=== PATIENT | male | born 1960 | race American Indian/Alaskan Native ===

== ENCOUNTER 2019-03-18 15:54 | Emergency (ER) | payer SELFPAY ==
[2019-03-18 16:01] VITALS: BP 169/102
--- NOTE | 2019-03-18 17:05 | Event Note ---
ED Screening Note Date of service: 03/18/19 Time: 17:03 ED Screening Note: This is a 58 y.o. M. that presents to the ER with elevated blood pressure and medication refills. Patient states recently moved here from [place] with no PCP. This initial assessment/diagnostic orders/clinical plan/treatment(s) is/are subject to change based on patients health status, clinical progression and re- assessment by fellow clinical providers in the ED. Further treatment and workup at subsequent clinical providers discretion. Patient/guardian urged not to elope from the ED as their condition may be serious if not clinically assessed and managed. Initial orders include:
--- NOTE | 2019-03-18 20:45 | Emergency Department Report ---
ED General Adult HPI - General Chief complaint: Medical Clearance Stated complaint: MEDICATION REFILL Time Seen by Provider: 03/18/19 17:00 Source: patient Mode of arrival: Ambulatory Limitations: No Limitations - History of Present Illness Initial comments: 58-year-old -[place] male has relocated to the area and reports that he needs a medication refill. He denies any pain or any symptoms. Reports no fever, chills, sweats. No chest pain, no palpitations, no shortness of breath. Out of his medication for a couple days and seeks a refill on -: Gradual Radiation: non-radiation Quality: dull Consistency: constant Improves with: none Worsens with: none - Related Data Previous Rx's Medication Instructions Recorded Last Taken Type Lisinopril [Zestril TAB] 40 mg PO QDAY #30 tablet 03/18/19 Unknown Rx amLODIPine [Norvasc] 10 mg PO DAILY #30 tab 03/18/19 Unknown Rx Allergies Allergy/AdvReac Type Severity Reaction Status Date / Time No Known Allergies Allergy Unverified 03/18/19 15:56 ED Review of Systems ROS: Stated complaint: MEDICATION REFILL Other details as noted in HPI Comment: All other systems reviewed and negative ED Past Medical Hx - Past Medical History Previous Medical History?: Yes Hx Hypertension: Yes - Surgical History Past Surgical History?: Yes Additional Surgical History: Left inquinal hernia suurgery - Social History Smoking Status: Never Smoker Substance Use Type: Prescribed - Medications Home Medications: Home Medications Medication Instructions Recorded Confirmed Last Taken Type Lisinopril [Zestril TAB] 40 mg PO QDAY #30 tablet 03/18/19 Unknown Rx amLODIPine [Norvasc] 10 mg PO DAILY #30 tab 03/18/19 Unknown Rx ED Physical Exam - General Limitations: No Limitations General appearance: alert, in no apparent distress - Head Head exam: Present: atraumatic, normocephalic - Eye Eye exam: Present: normal appearance - ENT ENT exam: Present: mucous membranes moist - Neck Neck exam: Present: normal inspection - Respiratory Respiratory exam: Present: normal lung sounds bilaterally. Absent: respiratory distress - Cardiovascular Cardiovascular Exam: Present: regular rate, normal rhythm. Absent: systolic murmur, diastolic murmur, rubs, gallop - GI/Abdominal GI/Abdominal exam: Present: soft, normal bowel sounds - Rectal Rectal exam: Present: deferred - Extremities Exam Extremities exam: Present: normal inspection - Back Exam Back exam: Present: normal inspection - Neurological Exam Neurological exam: Present: alert, oriented X3 - Psychiatric Psychiatric exam: Present: normal affect, normal mood - Skin Skin exam: Present: warm, dry, intact, normal color. Absent: rash ED Course Vital Signs 03/18/19 15:56 Temperature 98.3 F Pulse Rate 58 L Respiratory 18 Rate Blood Pressure 169/102 O2 Sat by Pulse 99 Oximetry Critical care attestation.: If time is entered above; I have spent that time in minutes in the direct care of this critically ill patient, excluding procedure time. ED Disposition Clinical Impression: Medication refill Disposition: DC- TO HOME OR SELFCARE Is pt being admited?: No Does the pt Need Aspirin: No Condition: Stable Instructions: Hypertension (ED), DASH Eating Plan (ED) Prescriptions: amLODIPine [Norvasc] 10 mg PO DAILY #30 tab Lisinopril [Zestril TAB] 40 mg PO QDAY #30 tablet Referrals: PETERSON MOORE MD [Primary Care Provider] - 3-5 Days
== END 2019-03-18 21:00 | disposition home or self-care (01) ==
LOC: ED 15:54
DX: I10 Essential (primary) hypertension (principal); Z76.0 Encounter for issue of repeat prescription
CPT/HCPCS: 99282